=== PATIENT | female | born 1975 | race Caucasian/White ===

== ENCOUNTER 2016-10-19 04:16 | Emergency (ER) | payer BC ==
[2016-10-19] MEDS ORDERED: Ondansetron ODT 4 MG TAB ONE (04:37)
[2016-10-19] MEDS ORDERED: Acetaminophen 325 MG TAB ONE (04:37)
[2016-10-19 04:46] LABS: #Basophils 0.1 thou/uL (0.0-0.2); #Lymphocytes 0.9 thou/uL (1.20-3.40); #Monocytes 0.5 thou/uL (0.11-0.59); #Neutrophils 15.8 thou/uL (1.40-6.50); %Basophils 0.3 % (0.0-1.0); %Eosinophils 0.1 % (0.0-10.0); %Lymphocytes 5.1 % (21.0-51.0); %Monocytes 2.8 % (0.0-10.0); %Neutrophils 91.7 % (42.0-75.0); Hemoglobin 15.4 g/dL (12.0-16.0); Mean Corpuscular HGB CONC 34.5 g/dL (32.0-36.0); Mean Corpuscular Hemoglobin 32.8 pg (27.0-31.0); Mean Corpuscular Volume 95.2 fl (81.0-99.0); Mean Platelet Volume 7.7 fL (7.4-10.4); Platelet Count 233 thou/uL (130-400); RBC Distribution Width 11.3 % (11.5-14.5); Red Blood Cell (RBC) Count 4.69 mill/uL (4.20-5.40); White Blood Cell (WBC) Count 17.2 thou/uL (4.8-10.8)
[2016-10-19 04:53] LABS: Bilirubin Negative (Negative); Blood, Urine Small (Negative); Clarity Hazy (Clear); Glucose, Urine (Dipstick) Negative (Negative); Leukocyte Negative (Negative); Nitrite Negative (Negative); Pregnancy Test - Urine (BHCG) Negative (Negative); Protein, Urine (Dipstick) Negative (Neg-Trace); Urobilinogen 0.2 mg/dL (0.2-1.0); pH, Urine 5.5 (5.0-9.0)
[2016-10-19 04:54] LABS: Pregu Control Background? CLEAR/WHITE (CLR/WHITE); Pregu Control Bar Appear? YES (CONTROL BAR); Specific Gravity 1.022 (1.002-1.036)
[2016-10-19 04:57] LABS: ALT (SGPT) 26 U/L (8-55); AST (SGOT) 14 U/L (5-34); Albumin 4.3 g/dL (3.5-5.0); Alkaline Phosphatase 89 U/L (40-150); Anion Gap 15 mmol/L (10-20); BUN (Urea Nitrogen) 10 mg/dL (7.0-18.7); Bilirubin, Total 0.8 mg/dL (0.2-1.2); Calc. Creatinine Clearance 0 mL/min (70-130); Calcium 9.5 mg/dL (7.8-10.44); Carbon Dioxide 21 mmol/L (22-29); Chloride 106 mmol/L (98-107); Estimated GFR-MDRD 58; Globulin 3.4 g/dL (2.4-3.5); Glucose 116 mg/dL (70-105); Lipase 28 U/L (8-78); Potassium 3.8 mmol/L (3.5-5.1); Protein, Total 7.7 g/dL (6.0-8.3); Sodium 138 mmol/L (136-145)
[2016-10-19 05:00] LABS: Bacteria/HPF 1+ HPF (None Seen); RBC/HPF 0-3 HPF (0-3); Squamous Epithelial 0-3 HPF (0-3); WBC/HPF 0-3 HPF (0-3)
[2016-10-19 05:01] LABS: Crystals/HPF 1+ AMORPH URATES HPF (Negative)
--- NOTE | 2016-10-19 09:20 | CT ---
PRELIMINARY REPORT/[facility]/EMERGENCY AFTER HOURS PROCEDURE: EXAM: CT Abdomen and Pelvis With Intravenous Contrast EXAM DATE/TIME: 10/19/2016 5:13 AM CLINICAL HISTORY: 40 years old, female; Pain and signs and symptoms; Abdominal tenderness and vomiting; Abdominal pain ; Periumbilical; Patient HX: Pt presents to the er for vomiting, vomiting since midnight. Reports vo miting 5-6 times, reports dry heaving the past couple of times. States she has had a fever, but does not have thermometer to check temp TECHNIQUE: Axial computed tomography images of the abdomen and pelvis with intravenous contrast. All CT scans a t this facility use one or more dose reduction techniques, viz.: automated exposure control; ma/kV a djustment per patient size (including targeted exams where dose is matched to indication; i.e. head); or iterative reconstruction technique. Coronal reformatted images were created and reviewed. CONTRAST: 70 mL of ISOVUE 370 administered intravenously. COMPARISON: No relevant prior studies available. FINDINGS: Lower thorax: No acute findings. ABDOMEN: Liver: Unremarkable. No mass. Gallbladder and bile ducts: Unremarkable. Pancreas: Unremarkable. Spleen: normal Adrenals: Unremarkable. No mass. Kidneys and ureters: Unremarkable. No solid mass. No hydronephrosis. Stomach and bowel: Mild thickening of the cecum ascending colon and hepatic flexure consistent with a colitis either infectious or inflammatory. Appendix: -The appendix is normal. PELVIS: Bladder: Unremarkable. No mass. Reproductive: normal. No mass ABDOMEN and PELVIS: Intraperitoneal space: No free fluid within the pelvis or within the dependent portions of the perit oneum. No free air. Bones/joints: The osseous structures are unremarkable other than mild degenerative disk disease. No fracture. No dislocation. Soft tissues: Unremarkable. Vasculature: Calcification of the aorta. No abdominal aortic aneurysm. Lymph nodes: -Numerous inguinal lymph nodes bilaterally. Nonspecific. Other findings: No obstruction. IMPRESSION: 1. Mild thickening of the cecum ascending colon and hepatic flexure consistent with a colitis either infectious or inflammatory. Lack of distention thought unlikely. 2. -The appendix is normal. 3. No obstruction. Thank you for allowing us to participate in the care of your patient. Dictated and Authenticated by: Negro Bynum MD 10/19/2016 6:02 AM Central Time ([place] \T\ [place]) FINAL REPORT CT ABDOMEN AND PELVIS WITH CONTRAST: DATE: 10/19/16. FINDINGS: Spiral CT of the abdomen and pelvis was performed for evaluation of nausea and vomiting and fever. Axial slices were acquired after giving IV contrast. Oral contrast was withheld by request. The major finding on the study is thickening of the right colon from the cecum through the hepatic f lexure. The appendix does not appear involved and appears normal. The findings would be most sugge stive of colitis, whether it be infectious or inflammatory. The remainder of the colon and the smal l bowel were unremarkable. The lung bases are clear. No infiltrate or effusion was seen. The liver, spleen, pancreas, gallbla dder, adrenal glands, kidneys, and abdominal aorta were all unremarkable. CT of the pelvis showed no pelvic masses. There might be a small right ovarian cyst. There is no f ree fluid or inflammatory change. IMPRESSION: Findings most consistent with colitis involving the cecum through the hepatic flexure. Report in agreement with preliminary reading by [employer]. POS: DAVID
== END 2016-10-19 06:18 | disposition home or self-care (01) ==
LOC: BURERS 04:16
DX: A09 Infectious gastroenteritis and colitis, unspecified (principal); F17.210 Nicotine dependence, cigarettes, uncomplicated
CPT/HCPCS: 74177; 80053; 81003; 81015; 81025; 83690; 85025; 96360; 96361; Q0162